=== PATIENT | male | born 1995 | race Caucasian/White ===

== ENCOUNTER 2021-08-06 11:44 | Day surgery (SDC) | payer OTHER, SELFPAY ==
[2021-08-06] VITALS (9 sets, daily range): BP systolic 82–140; BP diastolic 45–96; PULSE 65–99; RESP 16–20; TEMP 36.4–36.9; O2SAT 95–100; BMI 19.0
--- NOTE | ~2021-08-06 | XR_ITS ---
EXAMINATION: XR SOFT TISSUE NECK CLINICAL INDICATION: Question foreign body COMPARISON: None TECHNIQUE: 2 views of the soft tissue neck were obtained. FINDINGS: Soft tissue films of the neck demonstrate a normal larynx, pharynx and upper trachea. No soft tissue swelling or opaque foreign body is demonstrated. Visualized cervical spine appears unremarkable. XR/XR soft tissue neck IMPRESSION: No radiopaque foreign body seen.
--- NOTE | ~2021-08-06 | XR_ITS ---
EXAMINATION: CHEST AND ABDOMEN. CLINICAL INFORMATION: Question foreign body. COMPARISON: None TECHNIQUE: Chest 2 views. Abdomen one view. FINDINGS: Chest: The lungs are well-expanded and clear. The heart size and pulmonary vascularity is normal. No radiopaque foreign body seen. ABDOMEN: There is moderate stool in right colon. There is prominent small bowel loop with focal prominence left upper quadrant, nonspecific. There is no organomegaly. There is cholecystectomy change. No gross bony abnormality seen. No radiopaque foreign body seen. XR/XR chest 2V IMPRESSION: Unremarkable chest exam. Mild constipation without evidence of previous cholecystectomy. No radiopaque foreign body seen in the chest or abdomen.
--- NOTE | ~2021-08-06 | XR_ITS ---
EXAMINATION: CHEST AND ABDOMEN. CLINICAL INFORMATION: Question foreign body. COMPARISON: None TECHNIQUE: Chest 2 views. Abdomen one view. FINDINGS: Chest: The lungs are well-expanded and clear. The heart size and pulmonary vascularity is normal. No radiopaque foreign body seen. ABDOMEN: There is moderate stool in right colon. There is prominent small bowel loop with focal prominence left upper quadrant, nonspecific. There is no organomegaly. There is cholecystectomy change. No gross bony abnormality seen. No radiopaque foreign body seen. XR/XR KUB IMPRESSION: Unremarkable chest exam. Mild constipation without evidence of previous cholecystectomy. No radiopaque foreign body seen in the chest or abdomen.
[2021-08-06] MEDS: Lidocaine HCl Viscous 2 % 15 ML SOLUTION MUCOUS MEM (14:10)
[2021-08-06] MEDS: PHENobarb/Hyoscy/Atropine/Scop 10 ML ELIXIR PO (14:10)
[2021-08-06] MEDS: Famotidine 20 MG TABLET PO (14:11)
[2021-08-06] MEDS: Magnesium Hydrox/Alum Hydrox 30 ML ORAL.SUSP PO (14:11)
[2021-08-06] MEDS: Simethicone 80 MG TAB.CHEW 160 MG PO (14:38)
--- NOTE | 2021-08-06 14:50 | ED_ITS ---
HPI - Skin/Abscess/Foreign Bdy General Chief complaint: General Medical Stated complaint: chest pain, throat pain Time Seen by Provider: 08/06/21 12:36 Source: patient Mode of arrival: ambulatory Limitations: no limitations History of Present Illness HPI narrative: 26-year-old male with a past surgical history of a cholecystectomy no other medical history or surgical history presenting to the ED with complaints of thoughts of a foreign body in his throat/ esophagus since last night while he was eating a chicken breast he believes he swallowed a large piece and since then he feels like something is stuck and he can not eat or drink anything. He denies any other symptoms complaints or concerns at this time. complaint: foreign body (in throat sensation ) Onset (ago): day(s) (since lastnight ) Severity: moderate Quality: constant Relieving factors: none Exacerbating factors: other ( Swallowing) Context: other ( see above) Associated symptoms: nausea and vomiting Treatments prior to arrival: other ( see above) Related Data Allergies Allergy/AdvReac Type Severity Reaction Status Date / Time shellfish derived Allergy Unknown UNKNOWN Unverified 11/10/19 19:17 [SHELLFISH DERIVED] Review of Systems Review of Systems: Constitutional : No Weight loss, No Fever, No Chills, No Night Sweats, No Fatigue, No Malaise ENT/Mouth : No Hearing loss, No Ear Pain, No Nasal Congestion, No Sinus Pain, No Hoarseness, No sore throat, No Rhinorrhea, No Swallowing Difficulty Eyes: No Eye Pain, No Swelling, No Redness, No Foreign Body, No Discharge, No Vision Changes Cardiovascular : No Chest Pain, No SOB, No Dyspnea on Exertion, No Orthopnea, No Edema, No Palpitations Respiratory : No Cough, No Sputum, No Wheezing, No Smoke Exposure, No Dyspnea Gastrointestinal : + positive foreign body sensation to throat/esophagus, + Nausea, + Vomiting, No Diarrhea, No Constipation, No abdominal Pain, No Hematochezia, No Melena Genitourinary : no irregular bleeding, No Dysuria, No Urinary Frequency, No Hematuria, No Urinary Incontinence, No Urgency, No Flank Pain, No Urinary Flow Changes, No Hesitancy Musculoskeletal : No joint pain, No Myalgias, No Joint Swelling Skin : No Skin Lesions, No rash Neuro : No Weakness, No Numbness, No Paresthesias, No Loss of Consciousness, No Dizziness, No Headache Psych : No Anxiety/Panic, No Depression, No SI/HI/AH/VH, No Social Issues, Heme/Lymph: No Bruising, No Bleeding,No Lymphadenopathy Endocrine : No Polyuria, No Polydipsia, No Temperature Intolerance Yes all other systems are reviewed and are negative [facility] Past Medical History Attestation statement: The following information was validated with the patient. Source: old records reviewed and nursing notes reviewed Social History Social History Advance Directives: No Advance Directives Information Provided: No Physical Exam Vital Signs: Vital Signs: Last Vital Signs Temp 98.4 F 08/06/21 11:58 Pulse 95 08/06/21 15:08 Resp 16 08/06/21 13:53 BP 140/96 H 08/06/21 15:08 Pulse Ox 100 08/06/21 13:53 O2 Del Method 08/06/21 13:53 BMI result Body Mass Index 19.0 vital signs have been reviewed as normal and appeared to be correct. Blood pressure normal. Heart rate normal. Respiration rate normal. Temperature normal. Oxygen saturation normal. Appearance: Alert. Oriented X3. No acute distress. Head: Normal external exam. Normocephalic. Atraumatic. Eyes: PERRLA. EOMI. Conjunctiva and sclera normal. Eyelids normal. ENT: Pharynx normal. Uvula midline. Moist mucous membranes. No lesions/ulcerations or masses noted on the tongue. Normal voice. No trismus noted. No drooling noted. No muffled voice noted. Neck: Normal inspection. Neck supple. FROM. No adenopathy. Thyroid Normal. No tracheal deviation noted. No crepitus is noted. No meningeal signs. No neck mass noted. No signs of trauma noted. CVS: Normal heart rate and rhythm. Heart sound normal. Pulses normal throughout. No murmurs/rales/gallops. Respiratory: No respiratory distress. Painless inspiration. Breath sounds normal. No wheezes/rales/rhonchi noted. Chest nontender. No crepitus is noted. No accessory muscle usage noted or decreased air movement noted. Abdomen: Soft and nontender. Bowel sounds normal in all 4 quadrants. No distenti on noted. No organomegaly noted. No visible injury noted. Back: Full range of motion noted. Skin: Skin warm and dry. Normal skin color. Normal skin turgor. No rashes/lesions/lacerations noted. Extremities: Extremities exhibit normal range of motion and nontender. Neuro: Oriented X 3. No motor deficit. No sensory deficit. Reflexes normal. Normal steady gait. No focal neuro deficits noted. CN's II-XII intact bilaterally? Vascular: + radial pulses/+ 2 distal pedal pulses/+2 dorsalis pedis b/l. Normal cap refill. No cyanosis noted to upper extremity nails and lower extremity toes nails. Course Course Course Narrative: 12:40pm - 26-year-old male with a past surgical history of a cholecystectomy no other medical history or surgical history presenting to the ED with complaints of thoughts of a foreign body in his throat/ esophagus since last night while he was eating a chicken breast he believes he swallowed a large piece and since then he feels like something is stuck and he can not eat or drink anything. He denies any other symptoms complaints or concerns at this time. on exam he is tolerating secretions well. No trismus/ drooling/ stridor. Lungs clear to auscultation. Abdomen is soft and nontender. No obvious foreign bodies noted. Will obtain x-ray of soft tissue neck/ chest and KUB and re-evaluate. Reevaluation(s) Reevaluation #1: - Soft tissue neck x-ray negative for any acute processes. Chest x-ray negative. KUB revealed mild constipation otherwise no other acute processes. - While the patient was here I tried to give him a GI cocktail and some Gas-X and he reported no symptomatic relief and he started to vomit therefore I consulted with Dr. Abreu the senior accountant analyst who came down immediately and advised me to give the patient 0.4 mg of sublingual nitro patient tried this and still no symptomatic relief. Therefore we obtain labs and place an IV and started him on IV fluids and Dr. Abreu [facility]. Patient understands agrees with this plan. Time: 15:18 MDM - Skin/Abscess/Foreign Bdy Medical Records Attestation: I reviewed the patient's medical records. Lab Data Attestation: I reviewed the patient's lab results. Result diagrams: 08/06/21 15:16 06/14/22 15:16 Labs: Lab Results 08/06/21 08/06/21 08/06/21 Range/Units 15:16 15:16 15:16 WBC 10.4 (4.8-10.8) X10*3/uL RBC 4.48 L (4.60-5.80) X10*6/uL Hgb 14.0 (14.0-18.0) g/dl Hct 41.7 L (42.0-52.0) % MCV 93.1 (80.0-98.0) fL MCH 31.3 (27.0-33.0) pg MCHC 33.6 (31.0-36.0) g/dl RDW 12.4 (11.0-16.0) % Plt Count 191 (160-400) X10*3/uL MPV 9.7 (9.4-12.4) fL Immature Gran % (Auto) 0.2 (0.0-0.4) % Neut % (Auto) 72.6 (45-73) % Lymph % (Auto) 15.6 L (20-40) % [place] % (Auto) 10.5 (2-11) % Eos % (Auto) 0.9 (0-4) % Baso % (Auto) 0.2 (0-2) % Lymph # (Auto) 1.6 (1.2-4.9) X10*3/uL [place] # (Auto) 1.1 (0.1-1.2) X10*3/uL Eos # (Auto) 0.1 (0.0-0.4) X10*3/uL Baso # (Auto) 0.0 (0.0-0.2) X10*3/uL Abs Immat Gran (auto) 0.02 (0.00-0.03) X10*3/uL Absolute Neuts (auto) 7.6 (2.0-8.3) x10*3/uL Absolute Nucleated RBC 0.000 (0.0-0.012) X10*3/uL Nucleated RBC % (auto) 0.0 (0.0-0.2) /100WBC PT 11.7 (9.9-13.0) SEC INR 1.0 (0.9-1.1) COVID-19 (TRACY) Negative (Negative) COVID-19 Clin Com See Note Imaging Data Soft tissue neck/chest x-ray/kub xray: Attestation: I personally reviewed and interpreted this imaging study as follows: Radiologist's impression: soft tissue xray neck x-ray negative for any acute processes. Chest x-ray within normal limits. KUB revealed mild constipation. Critical Care Time Critical Care Time Critical Care Time: Yes Total Critical Care Time: 60 Attestation: I personally attest to this time spent taking care of the patient Discharge Plan Discharge Clinical Impression: Esophageal foreign body Patient Disposition: Admitted As Inpatient
--- NOTE | 2021-08-06 15:12 | P.CNGI_ITS ---
History of Present Illness Data of Consult Service Date: 08/06/21 Requesting physician: Lexi Simon Primary Care Provider: Unknown Physician HPI Reason for consult: food impaction 26-year-old male with a past surgical history of a cholecystectomy who I am seeing for assessment for food impaction. Patient quickly swallowed a large piece of chicken breast last night without adequately chewing, since then he has been coughing and bringing up mucous and saliva with feeling of something stuck in upper chest with constant, dull pain and discomfort 10/10. No fever, no SOB, no dirty sputum or wheezing. He denies this happening to him before, before this he was normal, with good appetite and stable weight Review of Systems Review of Systems: Constitutional : No Weight loss, No Fever, No Chills ENT/Mouth : No sore throat, No Rhinorrhea Eyes: No Swelling, No Redness Cardiovascular : + Chest Pain, No SOB, No Edema Respiratory : + Cough, No Sputum, No Wheezing Gastrointestinal : see HPI Genitourinary : NO Dysuria, No Urinary Frequency, No Hematuria, No Urgency Musculoskeletal : No joint pain, No Myalgias, No Joint Swelling Skin : No Skin Lesions, No rash Neuro : No Weakness, No Numbness, No Dizziness, No Headache Psych : No Anxiety/Panic, No Depression Heme/Lymph: No Bruising, No Lymphadenopathy Endocrine : No Polyuria, No Polydipsia All other systems reviewed and are negative. [facility] Family History Pertinent family history: No FH of esophageal disease Social History Social History Advance Directives: No Advance Directives Information Provided: No Meds Allergies Allergy/AdvReac Type Severity Reaction Status Date / Time shellfish derived Allergy Unknown UNKNOWN Unverified 11/10/19 19:17 [SHELLFISH DERIVED] Active Medications: Current Medications Sodium Chloride (Ns) 1,000 mls @ 999 mls/hr IVCONT .Q1H1M JORDAN Stop: 08/06/21 16:00 Physical Exam Vital Signs: Vital Signs: Last Vital Signs Temp 98.4 F 08/06/21 11:58 Pulse 95 08/06/21 15:08 Resp 16 08/06/21 13:53 BP 140/96 H 08/06/21 15:08 Pulse Ox 100 08/06/21 13:53 O2 Del Method 08/06/21 13:53 BMI result Body Mass Index 19.0 EXAM: GENERAL: The patient is well developed and nontoxic talking in sentences VITAL SIGNS:see workflow HEENT: Nonicteric sclerae, PERRLA, EOMI. Oropharynx clear. Moist mucous membranes. Conjunctivae appear well perfused. No thyroid mass. CHEST: Chest wall is nontender. HEART: Regular rate and rhythm without murmurs. LUNGS: Clear to auscultation bilaterally. ABDOMEN: Soft, positive bowel sounds, nontender, no organomegaly.no flank tenderness SKIN: No rash, no excessive bruising, petechiae, or purpura. NEUROLOGIC: Cranial nerves II-XII intact without motor/sensory deficit. Psych- nml affect MS: nml ROM Assessment and Plan (1) Impacted foreign body in esophagus: Status: Acute Plan 1/ food bolus impaction due to inadequately chewed food PLAN: 1/ can try nitro tab 0.4 mg x2-- 5 mins apart if BP allows 2/ if sx persist and no resolution then EGD for disimpaction Procedures Date of Service Date of Service: 08/06/21
[2021-08-06] MEDS: 0.9 % Sodium Chloride 1,000 ML 999 ML IVCONT (15:14)
[2021-08-06 15:20] LABS: MANUAL DIFF FLAG NO
[2021-08-06 15:21] LABS: Basophils Percent Auto 0.2 % (0-2); Eosinophils Absolute Auto 0.1 X10*3/uL (0.0-0.4); Eosinophils Percent Auto 0.9 % (0-4); Hematocrit 41.7 % (42.0-52.0); Imm Gran Abs Auto 0.02 X10*3/uL (0.00-0.03); Imm Gran Pct Auto 0.2 % (0.0-0.4); Lymphocytes Absolute Auto 1.6 X10*3/uL (1.2-4.9); Lymphocytes Percent Auto 15.6 % (20-40); Mean Corpuscular HGB Conc 33.6 g/dl (31.0-36.0); Mean Corpuscular Hemoglobin 31.3 pg (27.0-33.0); Mean Corpuscular Volume 93.1 fL (80.0-98.0); Mean Platelet Volume 9.7 fL (9.4-12.4); Monocytes Absolute Auto 1.1 X10*3/uL (0.1-1.2); Monocytes Percent Auto 10.5 % (2-11); Neutrophils Absolute Auto 7.6 x10*3/uL (2.0-8.3); Neutrophils Percent Auto 72.6 % (45-73); Platelet Count 191 X10*3/uL (160-400); Red Blood Count 4.48 X10*6/uL (4.60-5.80); Red Cell Distribution Width 12.4 % (11.0-16.0); White Blood Count 10.4 X10*3/uL (4.8-10.8)
[2021-08-06 15:27] LABS: Prothrombin Time 11.7 SEC (9.9-13.0)
--- NOTE | 2021-08-06 15:36 | MHC.SHP ---
Pre-Procedural Eval Section A Date of Service: 08/06/21 The patient is an INPATIENT: No The History & Physical has been completed within 30 days and I have reviewed it.: Yes Section B Chief Complaint: chest pain, throat pain Allergies: Allergies Allergy/AdvReac Type Severity Reaction Status Date / Time shellfish derived Allergy Unknown UNKNOWN Unverified 11/10/19 19:17 [SHELLFISH DERIVED] Plan Diagnosis/Plan: Unchanged I have reviewed the history and physical and performed a pertinent physical examination on my patient. No changes have occurred unless specified.
[2021-08-06 15:38] LABS: COVID-19 Test Negative (Negative)
--- NOTE | 2021-08-06 15:39 | HO.ANESPROP2 ---
HPI - Anesthesia Eval Consult details Narrative: 26 M EGD for food impaction PMFSH Active Problems Active Problems: All Active Problems (Updated 08/06/21 @ 15:21 by Alessia Abreu MD) Impacted foreign body in esophagus (Acute) History of cholecystectomy (Acute) Surgical History History of Problems with Anesthesia: No Social History Social History Patient Tobacco Use Status: Current everyday Tobacco user Tobacco use type: Cigarette Use of substances other than those prescribed or required for medical reasons: Yes Are you DNR?: No Advance Directives: No Advance Directives Information Provided: No Meds Allergies Allergy/AdvReac Type Severity Reaction Status Date / Time shellfish derived Allergy Unknown UNKNOWN Unverified 11/10/19 19:17 [SHELLFISH DERIVED] Active Medications: Current Medications Sodium Chloride (Ns) 1,000 mls @ 999 mls/hr IVCONT .Q1H1M JORDAN Stop: 08/06/21 16:00 Last Admin: 08/06/21 15:14 Dose: 999 mls/hr Exam Exam Date and Time: August 06, 2021 1539 Height,Weight and Vital Signs: Height 6 ft Weight 63.503 kg Last Vital Signs Temp 98.4 F 08/06/21 11:58 Pulse 95 08/06/21 15:08 Resp 16 08/06/21 13:53 BP 140/96 H 08/06/21 15:08 Pulse Ox 100 08/06/21 13:53 O2 Del Method 08/06/21 13:53 Pertinent Lab Results Pertinent Lab Results: Laboratory Tests 08/06/21 08/06/21 08/06/21 15:16 15:16 15:16 WBC 10.4 RBC 4.48 L Hgb 14.0 Hct 41.7 L MCV 93.1 MCH 31.3 MCHC 33.6 RDW 12.4 Plt Count 191 MPV 9.7 Immature Gran % (Auto) 0.2 Neut % (Auto) 72.6 Lymph % (Auto) 15.6 L [place] % (Auto) 10.5 Eos % (Auto) 0.9 Baso % (Auto) 0.2 Lymph # (Auto) 1.6 [place] # (Auto) 1.1 Eos # (Auto) 0.1 Baso # (Auto) 0.0 Abs Immat Gran (auto) 0.02 Absolute Neuts (auto) 7.6 Absolute Nucleated RBC 0.000 Nucleated RBC % (auto) 0.0 PT 11.7 INR 1.0 COVID-19 (TRACY) Negative COVID-19 Clin Com See Note Airway Mallampati Class: II TM Dist: >3cm Neck ROM: Full Loose/Missing/Broken Teeth: Yes Heart: S1,S2 Lungs: b/l breath sounds Assessment and Plan Assessment Anesthesia Assessment: Anesthesia Plan Discussed and Chart Reviewed Final Anesthetic Review History of Problems with Anesthesia: No NPO: Yes ASA Class: II Final Preanesthetic Review: Meds/Allgs Chart Reviewed and Consent Obtained/Reviewed Patient Risk: Intermediate Procedure Risk: Intermediate Anesthetic Plan Anesthetic Plan: GA Disposition: Standard PACU
[2021-08-06 15:40] LABS: Alanine Aminotransferase 16 U/L (0-40); Albumin Level 5.1 g/dL (3.5-5.0); Alkaline Phosphatase 48 U/L (39-117); Anion Gap 12 (12-20); Aspartate Amino Transferase 18 U/L (5-37); Bilirubin Total 0.6 mg/dL (0.0-1.0); Blood Urea Nitrogen 10 mg/dL (9-16); Calcium 9.7 mg/dL (8.4-10.2); Carbon Dioxide 28 mmol/L (22-29); Chloride 105 mmol/L (96-108); Creatinine Clr Calc Pharmacy 107.9; Estimated Glomerular Filt Rate > 60; Glucose Random 106 mg/dL (60-115); Potassium 4.2 mmol/L (3.3-5.1); Sodium 141 mmol/L (135-145)
--- NOTE | 2021-08-06 16:12 | P.BOP_ITS ---
Brief Operative Note Date of Service: 08/06/21 Pre-op diagnosis: food impaction Post-op diagnosis: same Procedure: see op note Surgeon: Alessia Aberu MD Anesthesia: GETA Was an Reimbursement Representative used for this Procedure?: No Estimated blood loss (mL): 0 Condition: stable Disposition: PACU
--- NOTE | 2021-08-06 16:12 | W.PM.OPN ---
Operative Note Operative Note Date of Service: 08/06/21 Narrative: Procedure Description: EGD Indication: food impaction Anesthesia: MAC FLEXIBLE TRANSORAL UPPER GASTROINTESTINAL ENDOSCOPY UPPER ENDOSCOPY Consent: Indications for the procedure and potential complications of bleeding, perforation, reaction to medications and missed diagnosis were discussed with the patient and informed consent was obtained. Instrument: Olympus GIF H 190 J mid size upper endoscope Monitoring: Vital signs and clinical assessment, continuous EKG monitoring, Pulse oximetry, Carbon Dioxide monitoring and blood pressure monitoring were done throughout the procedure. Procedure: The patient was placed in the left lateral decubitis position and pre-procedure medications were administered and a bite block was placed. The endoscope was inserted into the mouth and advanced under direct vision to the third part of duodenum. A careful inspection was made as the upper endoscope was withdrawn including a retroflexed examination of the proximal stomach; Findings and interventions are described below. Findings: Larynx:normal Esophagus: GE junction at 44 cm, diaphragm hiatus at 44 cm, no varices or esophagitis. No food material noted, bx taken from distal and proximal esophagus in separate jars. Stomach: Normal mucosa. Grade 2 flap valve on retroflexed examination of the cardia. Duodenum: Normal bulb and descending duodenum, Intervention: Biopsies as noted above Impression/Findings: food impaction resolved, probably with nitro tab bx taken to r/o Eoe PLAN: normal diet as tolerated can use magic mouthwash if needed for any residual discomfort
[2021-08-06] MEDS: Mag&Al/Sim/Diphenhyd/Lidocaine 10 ML ORAL.SUSP PO (17:02)
== END 2021-08-07 09:39 ==
LOC: HO.ED 17:11 → HO.SSS 08-07 09:39
PROVIDERS: Physician Assistant Medical; Emergency Provider Emergency Medicine; Visit Provider Internal Medicine Gastroenterology
PROC: 0DJ08ZZ Inspection of Upper Intestinal Tract, Via Natural or Artificial Opening Endoscopic (ICD-10-PCS; CPT 43235; principal; 2021-08-06 15:00)
DX: T18.108A Unspecified foreign body in esophagus causing other injury, initial encounter (principal); X58.XXXA Exposure to other specified factors, initial encounter; R07.9 Chest pain, unspecified; K44.9 Diaphragmatic hernia without obstruction or gangrene; Y93.89 Activity, other specified; Y92.9 Unspecified place or not applicable; Y99.8 Other external cause status; Z90.49 Acquired absence of other specified parts of digestive tract; Z20.822 Contact with and (suspected) exposure to COVID-19; F17.210 Nicotine dependence, cigarettes, uncomplicated
CPT/HCPCS: 43239; 36415; 70360; 71046; 74018; 80053; 85025; 85610; 87635; 88305; 96360; 99285; J1100; J2250; J2405; J3010

== ENCOUNTER 2021-09-29 02:26 | Emergency (ER) | payer OTHER, SELFPAY ==
[2021-09-29 03:37] VITALS: BP 122/83; PULSE 57; RESP 14; TEMP 36.4; O2SAT 99; BMI 23.0
== END 2021-09-29 05:43 | disposition left against medical advice (07) ==
PROVIDERS: Emergency Provider Emergency Medicine
DX: R09.89 Other specified symptoms and signs involving the circulatory and respiratory systems (principal)
CPT/HCPCS: 99281

== ENCOUNTER 2021-09-30 03:24 | Day surgery (SDC) | payer OTHER, SELFPAY ==
[2021-09-30] VITALS (8 sets, daily range): BP systolic 110–180; BP diastolic 52–86; PULSE 50–108; RESP 15–20; TEMP 36.4–36.9; O2SAT 98–100; BMI 23.0
--- NOTE | 2021-09-30 04:03 | ED.GENADULT ---
HPI - General Adult General Chief complaint: General Medical Stated complaint: FISH BONE STUCK IN THROAT Time Seen by Provider: 09/30/21 04:03 Source: patient Mode of arrival: EMS Limitations: no limitations History of Present Illness HPI narrative: 26-year-old male who presents emergency department for evaluation of esophageal food impaction. Patient states that he was eating fish 2 days prior and he felt like the fish got stuck in his throat. He states since that time he has not been able to eat or drink. He states that he feels is a a chunk of fish stuck in his throat he points to his sternal notch when asked to localize the sensation. Patient had a similar episode with eating Chick approximately 2 months prior. He was seen in the emergency department on 08/06/2021 for foreign body sensation in the throat. He was given sublingual nitroglycerin x2 with no relief his symptoms . He then had an an upper GI endoscopy done by Dr. Abreu and there was no food impaction noted. There was no significant esophagitis noted. Patient states that he started taking pantoprazole after this food impaction episode. He states he does get severe heartburn which is not relieved by the pantoprazole. Related Data Previous Rx's Medication Instructions Recorded Magic Mouthwash 10 ml PO QID #240 mL 08/06/21 Diphen/Lido/Antacid 1:1:1 240 mL suspension Allergies Allergy/AdvReac Type Severity Reaction Status Date / Time shellfish derived Allergy Unknown UNKNOWN Verified 08/06/21 17:22 [SHELLFISH DERIVED] Review of Systems Review of Systems: Yes all other systems are reviewed and are negative [facility] Past Medical History [facility] Narrative: Past medical history: None. Past surgical history: Cholecystectomy. Social history: He does smoke cigarettes. He denies alcohol use. He does smoke marijuana. Social History Social History Patient Tobacco Use Status: Current everyday Tobacco user Tobacco use type: Cigarette Advance Directives: No Advance Directives Information Provided: Yes Physical Exam ED Vital Signs: Vital Signs - 24 hr 09/30/21 03:35 Temperature 98.4 F Pulse Rate 108 H Respiratory Rate 20 Blood Pressure 137/86 Pulse Oximetry 99 Oxygen Delivery Method Room Air BMI result Body Mass Index 23.0 Const Other: Awake, alert, male patient, he does have a slightly muffled voice and does appear to be in distress secondary to his throat pain, he is pleasant and cooperative and answers all questions appropriately Orientation/consciousness: oriented to person and oriented to place [place] Head: Yes normal to inspection, Yes normocephalic and Yes atraumatic Ears: external ears normal General nose exam: Normal external nose present Face and sinus: Yes normal facial exam Mouth: Normal oral and palatal mucosa present Throat: Yes posterior oropharynx normal Eyes General: appearance normal, both eyes and all related structures Pupils: Equal, round and reactive pupils present Neck Neck: Yes normal visual inspection, Yes no lymphadenopathy, Yes trachea midline and Yes supple Chest Chest palpation & inspection: normal inspection of the chest and normal palpation of entire chest wall Resp Effort & Inspection: normal respiratory effort and able to speak in complete sentences Auscultation: clear to auscultation bilaterally Cardio Rate: regular rate Rhythm: regular rhythm Heart sounds: S1 normal heart sound present, S2 normal heart sound present and no murmurs GI Inspection: Yes normal to inspection Palpation (GI): Soft to palpation, nontender and no guarding Auscultation: normal bowel sounds General: Yes no CVA tenderness Back/Spine/Pelvis Back: no CVA tenderness Skin General skin exam: no rashes or lesions noted Neuro General: oriented to person and oriented to place Cranial nerves: Yes CN's II-XII intact bilaterally and Yes Equal, round and reactive pupils present Cognition (Neuro): normal cognition Extrem General: Yes normal to inspection Psych Appearance: grossly normal Affect: normal affect Attitude: cooperative Course Course Course Narrative: 26-year-old male who presents emergency department for evaluation of esophageal food impaction after eating fish 2 days prior. Patient had a similar presentation 08/06/2021 after eating chicken, seen in the emergency department and had an upper GI endoscopy which did not reveal a clear fluid impaction or cause for dysphagia. Patient has been taking pantoprazole for heartburn like symptoms which he states is not been affect. Patient's examination did reveal a slightly muffled voice and he did appear to be in distress secondary to his throat discomfort. I did order laboratory evaluation. Patient will be treated with glucagon 2 mg IV x2 doses and nitroglycerin to see if this improves his symptoms. If he gets no improvement I will contact the dairy farmworker on-call. 0520: Patient got no relief of his symptoms with glucagon, he states the pain actually got worse. The patient was ordered to get 1 sublingual nitroglycerin to see if this improves his symptoms. 0544: Patient did get nitroglycerin sublingually with no relief his discomfort. I did discuss the patient's presentation with our covering gastrologist, Dr. Cunningham. Dr. Cunningham recommended the patient remain NPO and that he will put the patient on the endoscopy scheduled for this morning. I did inform the patient of the plan. Patient was ordered to get lactated Ringer's at 150 cc an hour. Medical Decision Making Lab Data Result diagrams: 09/30/21 04:28 09/30/21 04:28 Labs: Lab Results 09/30/21 09/30/21 09/30/21 Range/Units 04:28 04:28 04:28 WBC 5.8 (4.8-10.8) X10*3/uL RBC 4.16 L (4.60-5.80) X10*6/uL Hgb 13.2 L (14.0-18.0) g/dl Hct 37.6 L (42.0-52.0) % MCV 90.4 (80.0-98.0) fL MCH 31.7 (27.0-33.0) pg MCHC 35.1 (31.0-36.0) g/dl RDW 12.2 (11.0-16.0) % Plt Count 197 (160-400) X10*3/uL MPV 10.1 (9.4-12.4) fL Immature Gran % (Auto) 0.2 (0.0-0.4) % Neut % (Auto) 52.5 (45-73) % Lymph % (Auto) 35.2 (20-40) % [place] % (Auto) 10.0 (2-11) % Eos % (Auto) 1.6 (0-4) % Baso % (Auto) 0.5 (0-2) % Lymph # (Auto) 2.0 (1.2-4.9) X10*3/uL [place] # (Auto) 0.6 (0.1-1.2) X10*3/uL Eos # (Auto) 0.1 (0.0-0.4) X10*3/uL Baso # (Auto) 0.0 (0.0-0.2) X10*3/uL Abs Immat Gran (auto) 0.01 (0.00-0.03) X10*3/uL Absolute Neuts (auto) 3.0 (2.0-8.3) x10*3/uL Absolute Nucleated RBC 0.000 (0.0-0.012) X10*3/uL Nucleated RBC % (auto) 0.0 (0.0-0.2) /100WBC Sodium 139 (135-145) mmol/L Potassium 3.7 (3.3-5.1) mmol/L Chloride 104 (96-108) mmol/L Carbon Dioxide 23 (22-29) mmol/L Anion Gap 16 (12-20) BUN 13 (9-16) mg/dL Creatinine 0.83 (0.5-1.4) mg/dL Estim Creat Clear Calc 148.3 Estimated GFR > 60 Random Glucose 97 (60-115) mg/dL Calcium 9.3 (8.4-10.2) mg/dL Total Bilirubin 0.7 (0.0-1.0) mg/dL AST 19 (5-37) U/L ALT 21 (0-40) U/L Alkaline Phosphatase 41 (39-117) U/L Total Protein 7.2 (6.5-8.0) g/dL Albumin 4.8 (3.5-5.0) g/dL COVID-19 (TRACY) Negative (Negative) COVID-19 Clin Com See Note Discharge Plan Discharge Clinical Impression: Food impaction of esophagus Patient Disposition: Still a Patient Prescriptions: No Action Magic Mouthwash Diphen/Lido/Antacid 1:1:1 240 mL suspension 10 ml PO QID Qty: 240 0RF Rx Instructions: Lidocaine Viscous 2 % 80mL; diphenhydramine 12.5 mg/5 mL 80mL; aluminum-mag hydrox-simeth 755de-126vg-18gl/5mL 80mL
[2021-09-30 04:40] LABS: Basophils Percent Auto 0.5 % (0-2); Eosinophils Absolute Auto 0.1 X10*3/uL (0.0-0.4); Eosinophils Percent Auto 1.6 % (0-4); Hematocrit 37.6 % (42.0-52.0); Hemoglobin 13.2 g/dl (14.0-18.0); Imm Gran Abs Auto 0.01 X10*3/uL (0.00-0.03); Imm Gran Pct Auto 0.2 % (0.0-0.4); Lymphocytes Percent Auto 35.2 % (20-40); MANUAL DIFF FLAG NO; Mean Corpuscular HGB Conc 35.1 g/dl (31.0-36.0); Mean Corpuscular Hemoglobin 31.7 pg (27.0-33.0); Mean Corpuscular Volume 90.4 fL (80.0-98.0); Mean Platelet Volume 10.1 fL (9.4-12.4); Monocytes Absolute Auto 0.6 X10*3/uL (0.1-1.2); Neutrophils Percent Auto 52.5 % (45-73); Platelet Count 197 X10*3/uL (160-400); Red Blood Count 4.16 X10*6/uL (4.60-5.80); Red Cell Distribution Width 12.2 % (11.0-16.0); White Blood Count 5.8 X10*3/uL (4.8-10.8)
[2021-09-30] MEDS: 0.9 % Sodium Chloride 1,000 ML 999 ML IV (04:40)
[2021-09-30 04:55] LABS: COVID-19 Test Negative (Negative)
[2021-09-30 04:58] LABS: Alanine Aminotransferase 21 U/L (0-40); Albumin Level 4.8 g/dL (3.5-5.0); Alkaline Phosphatase 41 U/L (39-117); Anion Gap 16 (12-20); Aspartate Amino Transferase 19 U/L (5-37); Bilirubin Total 0.7 mg/dL (0.0-1.0); Blood Urea Nitrogen 13 mg/dL (9-16); Calcium 9.3 mg/dL (8.4-10.2); Carbon Dioxide 23 mmol/L (22-29); Chloride 104 mmol/L (96-108); Creatinine Clr Calc Pharmacy 148.3; Estimated Glomerular Filt Rate > 60; Glucose Random 97 mg/dL (60-115); Potassium 3.7 mmol/L (3.3-5.1); Sodium 139 mmol/L (135-145); Total Protein 7.2 g/dL (6.5-8.0)
[2021-09-30] MEDS: Nitroglycerin 0.4 MG TAB.SUBL SUBLINGUAL (05:30)
[2021-09-30] MEDS: Lactated Ringers 1,000 ML 150 ML IVCONT (08:57)
--- NOTE | 2021-09-30 12:18 | HO.ANESPROP2 ---
HPI - Anesthesia Eval Consult details Narrative: Food impaction PMFSH Active Problems Active Problems: All Active Problems (Updated 09/30/21 @ 05:46 by Adrian Nevarez MD) Food impaction of esophagus (Acute) Impacted foreign body in esophagus (Acute) History of cholecystectomy (Acute) Family History Family history of problems with anesthesia: No Surgical History History of Problems with Anesthesia: No Social History Social History Patient Tobacco Use Status: Current everyday Tobacco user Tobacco use type: Cigarette Advance Directives: No Advance Directives Information Provided: Yes Meds Allergies Allergy/AdvReac Type Severity Reaction Status Date / Time shellfish derived Allergy Unknown UNKNOWN Verified 08/06/21 17:22 [SHELLFISH DERIVED] Active Medications: Current Medications Lactated Ringer's (Lr) 1,000 mls @ 150 mls/hr IVCONT .[id number] JORDAN Last Admin: 09/30/21 08:57 Dose: 150 mls/hr Exam Exam Date and Time: September 30, 2021 1218 Height,Weight and Vital Signs: Height 6 ft Weight 77.111 kg Last Vital Signs Temp 97.7 F 09/30/21 05:50 Pulse 52 09/30/21 07:44 Resp 16 09/30/21 07:44 BP 112/66 09/30/21 07:44 Pulse Ox 100 09/30/21 07:44 O2 Del Method 09/30/21 07:44 Pertinent Lab Results Pertinent Lab Results: Laboratory Tests 09/30/21 09/30/21 09/30/21 04:28 04:28 04:28 WBC 5.8 RBC 4.16 L Hgb 13.2 L Hct 37.6 L MCV 90.4 MCH 31.7 MCHC 35.1 RDW 12.2 Plt Count 197 MPV 10.1 Immature Gran % (Auto) 0.2 Neut % (Auto) 52.5 Lymph % (Auto) 35.2 [place] % (Auto) 10.0 Eos % (Auto) 1.6 Baso % (Auto) 0.5 Lymph # (Auto) 2.0 [place] # (Auto) 0.6 Eos # (Auto) 0.1 Baso # (Auto) 0.0 Abs Immat Gran (auto) 0.01 Absolute Neuts (auto) 3.0 Absolute Nucleated RBC 0.000 Nucleated RBC % (auto) 0.0 Sodium 139 Potassium 3.7 Chloride 104 Carbon Dioxide 23 Anion Gap 16 BUN 13 Creatinine 0.83 Estim Creat Clear Calc 148.3 Estimated GFR > 60 Random Glucose 97 Calcium 9.3 Total Bilirubin 0.7 AST 19 ALT 21 Alkaline Phosphatase 41 Total Protein 7.2 Albumin 4.8 Glucagon Cancelled COVID-19 (TRACY) COVID-19 Clin Com 09/30/21 04:28 WBC RBC Hgb Hct MCV MCH MCHC RDW Plt Count MPV Immature Gran % (Auto) Neut % (Auto) Lymph % (Auto) [place] % (Auto) Eos % (Auto) Baso % (Auto) Lymph # (Auto) [place] # (Auto) Eos # (Auto) Baso # (Auto) Abs Immat Gran (auto) Absolute Neuts (auto) Absolute Nucleated RBC Nucleated RBC % (auto) Sodium Potassium Chloride Carbon Dioxide Anion Gap BUN Creatinine Estim Creat Clear Calc Estimated GFR Random Glucose Calcium Total Bilirubin AST ALT Alkaline Phosphatase Total Protein Albumin Glucagon COVID-19 (TRACY) Negative COVID-19 Clin Com See Note Airway Mallampati Class: II TM Dist: >3cm Neck ROM: Full Loose/Missing/Broken Teeth: No Heart: [id number] Lungs: cta b/l Assessment and Plan Assessment Anesthesia Assessment: Anesthesia Plan Discussed and Chart Reviewed Final Anesthetic Review Family History of Problems with Anesthesia: No History of Problems with Anesthesia: No NPO: Yes ASA Class: II Final Preanesthetic Review: No Changes in Pt Med Stat, Meds/Allgs Chart Reviewed, Consent Obtained/Reviewed and Anes Risks/Benef Reviewed Patient Risk: Intermediate Procedure Risk: Intermediate Assessment/Block/Sedation in SS: Assess/Block/Sedation-SS Anesthetic Plan Anesthetic Plan: GA, MAC: and Agree w/ Assess. and Plan Disposition: Standard PACU
--- NOTE | 2021-09-30 12:57 | MHC.SHP ---
Pre-Procedural Eval Section A Date of Service: 09/30/21 The patient is an INPATIENT: No Changes since office visit: No Cold of Flu in the past 2 weeks, No New Medical Problems, No Changes in Medication and No Patient answered all questions The History & Physical has been completed within 30 days and I have reviewed it.: Yes Section B Chief Complaint: FISH BONE STUCK IN THROAT Allergies: Allergies Allergy/AdvReac Type Severity Reaction Status Date / Time shellfish derived Allergy Unknown UNKNOWN Verified 08/06/21 17:22 [SHELLFISH DERIVED] Plan I have reviewed the history and physical and performed a pertinent physical examination on my patient. No changes have occurred unless specified.
--- NOTE | 2021-09-30 12:57 | PM.EVENT ---
Event Note Date of Service: 09/30/21 Event Note: GI consult dictated EGD for futher evaluation of dysphagia. Patient aware of risks and benefits and agrees to proceed.
--- NOTE | 2021-09-30 13:27 | P.BOP_ITS ---
Brief Operative Note Date of Service: 09/30/21 Pre-op diagnosis: dysphagia Post-op diagnosis: same Procedure: egd Surgeon: Timo Cunningham Anesthesia: MAC Was an Histotechnologist Supervisor used for this Procedure?: No Estimated blood loss (mL): 0 Pathology: none sent Condition: stable Disposition: PACU
--- NOTE | 2021-10-01 00:46 | CONS_ITS ---
DATE OF SERVICE: 09/30/2021 REASON FOR CONSULTATION: Acute dysphagia. HISTORY OF PRESENT ILLNESS: The patient is a pleasant 26-year-old man who was evaluated in the emergency department earlier today with complaints of dysphagia. States that his symptoms began 2 days prior to admission when he had a piece of fish. Since that time, he has felt like there is something like a bone stuck in his esophagus. He has no complaints of fever, chills, nausea, or vomiting. He did have similar episode in July and underwent upper endoscopy for possible food impaction, which showed no food impaction. Biopsies at that time were negative for Bean esophagus and showed no evidence of eosinophilic esophagitis. PAST MEDICAL HISTORY: He denies other medical or surgical illnesses. CURRENT MEDICATIONS: List is reviewed in the chart. ALLERGIES: THERE IS A DOCUMENTED ALLERGY TO SHELLFISH. FAMILY HISTORY: Reviewed with the patient and is noncontributory. SOCIAL HISTORY: There is no current substance abuse. He does smoke 5 cigarettes per day. He denies alcohol intake to a significant degree and does use marijuana. REVIEW OF SYSTEMS: SKIN: No pruritus. HEENT: Negative. CARDIOPULMONARY: No shortness of breath or chest pain. GASTROINTESTINAL: As above. GENITOURINARY: Negative. NEUROPSYCHIATRIC: Negative. PHYSICAL EXAMINATION: GENERAL: Shows a pleasant male, lying comfortably in bed. VITAL SIGNS: Stable. SKIN: Anicteric. HEENT: Shows no scleral icterus. NECK: Without lymphadenopathy or thyromegaly. LUNGS: Clear. HEART: Shows a regular rate and rhythm. S1, S2. No murmur. ABDOMEN: Soft. No focal mass or tenderness. Bowel sounds are present. No organomegaly is noted. EXTREMITIES: Without edema. IMPRESSION: Dysphagia with question of impacted fishbone. PLAN: Upper endoscopy. Risks and benefits of the procedure have been discussed with the patient, who understands and agrees to proceed. MD KATIE Sanders/PERLA / [phone]
--- NOTE | 2021-10-01 00:51 | OP_ITS ---
SURGEON: Timo Cunningham MD INDICATIONS: Dysphagia and foreign body sensation. PREOPERATIVE DIAGNOSIS: POSTOPERATIVE DIAGNOSIS: PROCEDURE PERFORMED: Upper endoscopy. ESTIMATED BLOOD LOSS: COMPLICATIONS: ANESTHESIA: ASSISTANTS: SPECIMENS: MEDICATIONS: Monitored anesthesia care. DESCRIPTION OF PROCEDURE: A history and physical was performed. The risks and benefits of the procedure were explained to the patient. Informed consent was obtained. The patient was placed in the left lateral decubitus position. The Olympus video gastroscope was introduced into the esophagus, stomach, and duodenum. Examination was performed. The scope was removed. He tolerated the procedure well and was returned to the recovery area in stable condition. FINDINGS: 1. The esophagus was normal. There was no foreign body. 2. The stomach was normal. 3. Duodenum: The bulb and second portion were normal. IMPRESSION: Normal upper endoscopy. RECOMMENDATION: Follow up as needed. MD KATIE Sanders/MODL / [phone]
== END 2021-09-30 14:23 | disposition home or self-care (01) ==
LOC: HO.ED 12:18 → HO.SSS 12:48
PROVIDERS: Emergency Provider Emergency Medicine Emergency Medical Services; Visit Provider Internal Medicine Gastroenterology
PROC: 0DJ08ZZ Inspection of Upper Intestinal Tract, Via Natural or Artificial Opening Endoscopic (ICD-10-PCS; CPT 43235; principal; 2021-09-30 13:00)
DX: T18.128A Food in esophagus causing other injury, initial encounter (principal); X58.XXXA Exposure to other specified factors, initial encounter; R13.10 Dysphagia, unspecified; R09.89 Other specified symptoms and signs involving the circulatory and respiratory systems; Z91.013 Allergy to seafood; F17.210 Nicotine dependence, cigarettes, uncomplicated; F12.90 Cannabis use, unspecified, uncomplicated; Z90.49 Acquired absence of other specified parts of digestive tract; Z20.822 Contact with and (suspected) exposure to COVID-19; Y93.9 Activity, unspecified; Y92.9 Unspecified place or not applicable; Y99.9 Unspecified external cause status
CPT/HCPCS: 43235; 36415; 80053; 82943; 85025; 87635; 96374; 99285; J1610

== ENCOUNTER 2021-10-07 08:40 | Outpatient (REF) | payer OTHER, SELFPAY ==
--- NOTE | ~2021-10-07 | FL_ITS ---
EXAMINATION: FL BARIUM SWALLOW CLINICAL INFORMATION: Dysphagia COMPARISON: None TECHNIQUE: Barium swallow examination is performed using fluoroscopic evaluation in addition to multiple fluoroscopic spot views. The patient is imaged both upright and prone and using both thick and thin sulfate along with effervescent granules. The patient was also administered barium tablet. Fluoroscopy time: 1.4 minutes DAP: 3.6 Gycm2 Images: 43 FINDINGS: The swallowing mechanism is normal. No aspiration or penetration is seen. Esophageal motility is normal. There is a small sliding hiatal hernia. There is mild gastroesophageal reflux. Barium tablet passed freely into the stomach. FL/FL barium swallow IMPRESSION: Mild gastroesophageal reflux and small sliding hiatal hernia.
== END 2021-10-07 08:41 | disposition home or self-care (01) ==
LOC: HO.XRAY 08:40
PROVIDERS: Visit Provider Internal Medicine Gastroenterology
DX: R13.10 Dysphagia, unspecified (principal)
CPT/HCPCS: 74220